=== PATIENT | male | born 1990 | race African-American/Black ===

== ENCOUNTER 2020-10-19 08:59 | Emergency (ER) | payer OTHER ==
--- NOTE | 2020-10-19 09:03 | ER Document Report ---
HPI - HPI Time Seen by Provider: 10/19/20 09:02 Notes: 30-year-old male presents to the emergency room today for evaluation of STDs after having protected sexual intercourse last night using a condom however his partner told him after they were intimate that she does have genital herpes. He believes that she did not have an active outbreak at the time, she told him that she has not had an outbreak in over 2 years. Patient states last time he was checked for chlamydia and gonorrhea was 2 years ago. States that this is his first occurrence with a new partner in over a year. Denies any penile drainage, penile ulcerations, testicular pain. Denies any prior history of any STDs or STIs. Denies fevers, chills, chest pain,palpitations, shortness of breath, dyspnea, nausea, vomiting, diarrhea, abdominal pain, hematuria,blurred vision, double vision, loss of vision, speech changes, LH, dizziness, syncope, headaches, wheezing, ST, URI, neck pain, weakness, bowel or bladder dysfunction, saddle anesthesia, numbness or tingling in bilateral upper or lower extremities equally, muscle paralysis, weakness in bilateral upper or lower extremities equally or rash. Denies IV drug use. Past Medical History - General Information source: Patient - Social History Smoking Status: Unknown if Ever Smoked Family History: Reviewed & Not Pertinent Vertical Provider Document - CONSTITUTIONAL Agree With Documented VS: Yes Exam Limitations: No Limitations General Appearance: WD/WN Notes: MEDICATIONS: I agree with the patient medications as charted by the RN. ALLERGIES: I agree with the allergies as charted by the RN. PAST MEDICAL HISTORY/PAST SURGICAL HISTORY: Reviewed and agree as charted by RN. SOCIAL HISTORY: Reviewed and agree as charted by RN. FAMILY HISTORY: No significant familial comorbid conditions directly related to patient complaint EXAM: Reviewed vital signs as charted by RN. PHYSICAL EXAMINATION:reviewed vital signs by RN GENERAL: Well-appearing, well-nourished and in no acute distress. HEAD: Atraumatic, normocephalic. EYES: Pupils equal round and reactive to light, extraocular movements intact, sclera anicteric, conjunctiva are normal. ENT: Nares patent, oropharynx clear without exudates. Moist mucous membranes. NECK: Normal range of motion, supple without lymphadenopathy LUNGS: Breath sounds clear to auscultation bilaterally and equal. No wheezes rales or rhonchi. HEART: Regular rate and rhythm without murmurs ABDOMEN: Soft, nontender, nondistended abdomen. No guarding, no rebound. No masses appreciated. : Both testicles descended, no lesions noted on testes, penile shaft, meatus, base of shaft. No drainage from meatus. Circumflex reflux positive bilaterally Musculoskeletal: Normal range of motion, no pitting or edema. No cyanosis. NEUROLOGICAL: Cranial nerves grossly intact. Normal speech, normal gait. Normal sensory, motor exams PSYCH: Normal mood, normal affect. SKIN: Warm, Dry, normal turgor, no rashes or lesions noted. Course - Re-evaluation Re-evalutation: 10/19/20 10:50 Afebrile, vital stable no distress. Nurses notes reviewed. Patient treated with azithromycin 1 g and Rocephin 250 mg IM for treatment of chlamydia and gonorrhea. Do not engage in sexual intercourse for 7-10 days after treatment. Advised that partner needs to be treated as well so you are not reinfected. Pt verbalizes that understands the risks that come with having unprotected sex. discussed safe sex, using protection. pt was tx'd for G/C at this visit. advised to have protected sex always, go to [facility] of the [facility] for further blood testing for HIV, hepatitis C, etc. Pt verbalized understanding of these instructions and agreed with plan of care. After performing a Medical Screening Examination, I estimate there is LOW risk for ACUTE APPENDICITIS, BOWEL OBSTRUCTION, ACUTE CHOLECYSTITIS, PERFORATED DIVERTICULITIS, INCARCERATED HERNIA, PANCREATITIS, TESTICULAR TORSION or PERFORATED ULCER, thus I consider the discharge disposition reasonable. Also, there is no evidence or peritonitis, sepsis, or toxicity. I have reevaluated this patient multiple times and no significant life threatening changes are noted. The patient and I have discussed the diagnosis and risks, and we agree with discharging home with close follow-up with the understanding that symptoms and presentations can change. We also discussed returning to the Emergency Department immediately if new or worsening symptoms occur. We have discussed the symptoms which are most concerning (e.g., bloody stool, fever, changing or worsening pain, intractable vomiting - standard verbal up date) that necessitate immediate return. - Laboratory Results Critical Laboratory Results Reviewed: No Critical Results - Radiology Results Critical Radiology Results Reviewed: No Critical Results Discharge - Discharge Clinical Impression: Exposure to genital herpes, Exposure to sexually transmitted disease (STD), Proteinuria Condition: Stable Disposition: HOME, SELF-CARE Additional Instructions: I prophylactically called in a prescription for an antiviral called acyclovir 400 mg to take 3 times a day for 7 days. Please monitor for any signs such as tingling in the genital area, pain, or ulcerations. You have been treated with azithromycin 1 g and Rocephin 250 mg IM for treatment of chlamydia and gonorrhea. Do not engage in sexual intercourse for 7-10 days after treatement. discussed safe sex, using protection. pt was tx'd for G/C at this visit. Advised to have protected sex always, go to [facility]CP of the [facility] for further blood testing for HIV, hepatitis C, etc. Also urinalysis showed that you have proteinuria. I do advise that you do follow-up with primary care provider to have a repeat urinalysis to determine if this is a one-time occurrence. I also have given you a referral to urologist for follow-up of your proteinuria Return immediately for any new or worsening symptoms. Follow up with primary care provider, call tomorrow to make followup appointment. Prescriptions: Acyclovir [Acyclovir 400 mg Tablet] 400 mg PO TID #21 tablet Forms: Return to Work Referrals: MATEO ARNOLD MD [Primary Care Provider] - Follow up as needed VANESSA CHARLES MD [NO LOCAL MD] - Follow up as needed
[2020-10-19 09:04] VITALS: BP 169/85
[2020-10-19 10:18] LABS: APPEARANCE,URINE CLEAR; BILIRUBIN,URINE NEGATIVE (NEGATIVE); COLOR,URINE YELLOW; GLUCOSE, URINE NEGATIVE (NEGATIVE); KETONES,URINE NEGATIVE (NEGATIVE); LEUKOCYTE ESTERASE,URINE NEGATIVE (NEGATIVE); NITRITE,URINE NEGATIVE (NEGATIVE); PROTEIN,URINE 100 mg/dL (NEGATIVE); URINE SPECIFIC GRAVITY 1.031; UROBILINOGEN,URINE NEGATIVE mg/dL (<2.0)
[2020-10-19] MEDS ORDERED: CEFTRIAXONE INJ 250 MG VIAL IM ONE (10:56)
[2020-10-19] MEDS ORDERED: LIDOCAINE 1% INJ-PF (10 MG/ML) 30 ML SDV INJ ONE (10:56)
[2020-10-19] MEDS ORDERED: AZITHROMYCIN 1 GM SUSP PACKET PO ONE (10:56)
[2020-10-19 11:37] LABS: CHLAM PCR NOT DETECTED (NOT DETECT)
== END 2020-10-19 11:14 | disposition home or self-care (01) ==
LOC: ER 08:59
DX: Z20.2 Contact with and (suspected) exposure to infections with a predominantly sexual mode of transmission (principal); R80.9 Proteinuria, unspecified
CPT/HCPCS: 99284; 96372; 81001; 87491; 87591; J3490; Q0144; J0696